=== PATIENT | female | born 1985 | race Caucasian/White ===

== ENCOUNTER 2016-10-01 19:59 | Emergency (ER) | payer OTHER ==
[~2016-10-01] VITALS: Ht 157.5 cm; Wt 99.6 kg
[2016-10-01 21:26] LABS: HEMATOCRIT 41.9 % (36.0-46.0); MCH 29.8 PG (29.0-34.0); MCHC 33.2 G/DL (30.0-36.0); MCV 89.7 FL (83-99); MEAN PLAT.VOLUME 8.7 uM^3 (9.5-12.4); PLATELET COUNT 288 K/uL (156-360); RBC DIS.WIDTH-CV 12.8 % (11.8-14.6); RBC DIS.WIDTH-SD 41.8 % (39-53); RED BLOOD COUNT 4.67 M/uL (3.80-5.20); WHITE BLOOD COUNT 11.8 K/uL (4.1-10.2)
[2016-10-01 21:59] LABS: CHLORIDE 108 mEq/L (99-109); SODIUM 139 mEq/L (136-147)
[2016-10-01 22:01] LABS: GLUCOSE 88 mg/dL (70-99)
[2016-10-01 22:03] LABS: ANION GAP 11 MEQ/L (2-14)
[2016-10-01 22:05] LABS: GFR ESTIMATE (CALCULATED) > 59 mL/min/
[2016-10-01 22:06] LABS: UREA NITROGEN (BUN) 13 mg/dL (9-23)
[2016-10-01 22:45] LABS: ADD MIUA? YES; BILIRUBIN NEGATIVE; BLOOD LARGE; COLOR AMBER ((YELLOW)); GLUCOSE (STRIP) NEGATIVE; KETONES 5; LEUKOCYTES SMALL; NITRITE NEGATIVE; PROTEIN (STRIP) 30; SPECIFIC GRAVITY 1.038 (1.000-1.030); UROBILINOGEN 0.2 MG/DL (0.2-1.0)
[2016-10-01 22:57] LABS: BACTERIA RARE /HPF; EPITHELIAL CELLS 1+ /HPF; MUCUS 4+ /LPF; RED BLOOD CELLS NONE SEEN /HPF (0-5); UCUL ADDED? NO; WHITE BLOOD CELLS 15-20 /HPF (0-5)
[2016-10-01 23:38] VITALS: BP 120/89
== END 2016-10-01 23:43 | disposition home or self-care (01) ==
LOC: EME 19:59
PROVIDERS: Physician Assistant
DX: O20.9 Hemorrhage in early pregnancy, unspecified (principal); R10.30 Lower abdominal pain, unspecified; M54.9 Dorsalgia, unspecified; O99.331 Smoking (tobacco) complicating pregnancy, first trimester; F17.200 Nicotine dependence, unspecified, uncomplicated
CPT/HCPCS: 76801; 80048; 81003; 84702; 85027; 86900; 86901; 87077; 87086; 87186; 99281; 99284

== ENCOUNTER 2016-12-01 13:26 | Observation (INO) | payer OTHER ==
[~2016-12-01] VITALS: Ht 157.5 cm; Wt 101.7 kg
[2016-12-01 14:48] LABS: BASOPHIL COUNT 0.1 K/uL (0-0.1); EOSINOPHIL (%) 0.3 % (0-5); EOSINOPHIL COUNT 0.1 K/uL (0-0.3); HEMATOCRIT 42.6 % (36.0-46.0); IMMATURE GRANULOCYTE (%) 0.4 % (0.0-0.7); IMMATURE GRANULOCYTE COUNT 0.1 K/uL; INSTRUMENT ABS NEUTROPHIL CT 12.5 K/uL; LYMPHOCYTE COUNT 2.6 K/uL (1.0-2.8); MCH 29.5 PG (29.0-34.0); MCHC 33.6 G/DL (30.0-36.0); MEAN PLAT.VOLUME 8.9 uM^3 (9.5-12.4); MONOCYTE COUNT 1.2 K/uL (0-0.8); NEUTROPHIL (%) 76.2 % (45-76); NEUTROPHIL COUNT 12.5 K/uL (1.8-6.4); PLATELET COUNT 299 K/uL (156-360); RBC DIS.WIDTH-CV 12.4 % (11.8-14.6); RBC DIS.WIDTH-SD 40.2 % (39-53); RED BLOOD COUNT 4.84 M/uL (3.80-5.20); WHITE BLOOD COUNT 16.4 K/uL (4.1-10.2)
[2016-12-01 15:00] LABS: CHLORIDE 105 mEq/L (99-109); POTASSIUM 3.8 mEq/L (3.7-5.4); SODIUM 138 mEq/L (136-147)
[2016-12-01 15:03] LABS: GLUCOSE 103 mg/dL (70-99)
[2016-12-01 15:04] LABS: ANION GAP 15 MEQ/L (2-14)
[2016-12-01 15:05] LABS: TOTAL BILIRUBIN 0.7 mg/dL (0.0-1.0)
[2016-12-01 15:06] LABS: SERUM ETHYL ALCOHOL < 10 mg/dL
[2016-12-01 15:07] LABS: ALKALINE PHOSPHATASE 47 IU/L (3-129); GFR ESTIMATE (CALCULATED) > 59 mL/min/
[2016-12-01 15:08] LABS: DIRECT BILIRUBIN 0.3 mg/dL (0.0-0.3)
[2016-12-01 15:09] LABS: UREA NITROGEN (BUN) 13 mg/dL (9-23)
[2016-12-01 15:10] LABS: SALICYLATE < 5.0 MG/DL (15-30)
[2016-12-01 15:16] LABS: QUANTITATIVE HCG < 4.0 MIU/ML
[2016-12-01 15:25] LABS: ADD MIUA? YES; BILIRUBIN NEGATIVE; BLOOD SMALL; COLOR AMBER ((YELLOW)); GLUCOSE (STRIP) NEGATIVE; KETONES NEGATIVE; LEUKOCYTES NEGATIVE; NITRITE NEGATIVE; PROTEIN (STRIP) 30; SPECIFIC GRAVITY 1.029 (1.000-1.030); UROBILINOGEN 0.2 MG/DL (0.2-1.0)
[2016-12-01 15:35] LABS: AMPHETAMINE NEGATIVE (500 ng/mL); BARBITURATES NEGATIVE (200 ng/mL); BENZODIAZEPINES NEGATIVE (150 ng/mL); COCAINE NEGATIVE (150 ng/mL); INTERNAL CONTROLS VALID? YES; METHADONE NEGATIVE (200 ng/mL); METHAMPHETAMINE NEGATIVE (500 ng/mL); OPIATES (MORPHINE) NEGATIVE (100 ng/mL); OXYCODONE NEGATIVE (100 ng/mL); PHENCYCLIDINE NEGATIVE (25 ng/mL); PROPOXYPHENE NEGATIVE (300 ng/mL); THC CANNABINOIDS NEGATIVE (50 ng/mL); TRICYCLIC ANTIDEPRESSANTS NEGATIVE (300 ng/mL)
[2016-12-01 15:41] LABS: BACTERIA RARE /HPF; EPITHELIAL CELLS 2+ /HPF; MUCUS 1+ /LPF; WHITE BLOOD CELLS 0-5 /HPF (0-5)
[2016-12-01] MEDS ORDERED: LEXAPRO10 MG PO (16:23)
[2016-12-01] MEDS ORDERED: INHALER (16:23)
[2016-12-01] MEDS ORDERED: VENTOLIN HFA18 GM IH (16:23)
[2016-12-01 19:46] VITALS: BP 102/53
[2016-12-01 23:50] VITALS: BP 118/66
[2016-12-02 03:56] VITALS: BP 115/58
[2016-12-02 06:12] LABS: ANION GAP 8 MEQ/L (2-14); CHLORIDE 109 MEQ/L (99-109); GFR ESTIMATE (CALCULATED) > 59 mL/min/; GLUCOSE 84 mg/dL (70-99); SAMPLE HEMOLYSIS CHECK 0; SAMPLE ICTERIC CHECK 0; SAMPLE LIPEMIA CHECK 0; SODIUM 140 MEQ/L (136-147); UREA NITROGEN (BUN) 12 mg/dL (9-23)
[2016-12-02 08:00] VITALS: BP 96/51
[2016-12-02 11:48] VITALS: BP 119/74
== END 2016-12-02 13:14 | disposition home or self-care (01) ==
LOC: EME 13:26 → EDOF 16:37 → 5WEST 19:29
PROVIDERS: Emergency Medicine; Hospitalist
DX: T43.222A Poisoning by selective serotonin reuptake inhibitors, intentional self-harm, initial encounter (principal); F43.22 Adjustment disorder with anxiety; F32.9 Major depressive disorder, single episode, unspecified; J45.909 Unspecified asthma, uncomplicated; F17.200 Nicotine dependence, unspecified, uncomplicated
CPT/HCPCS: 80048; 80076; 81003; 84702; 85025; 93005; G0378; G0480; J1200; J1885; J2405; J2765; J7030; S0028

== ENCOUNTER 2017-01-08 13:38 | Emergency (ER) | payer OTHER ==
[~2017-01-08] VITALS: Ht 157.5 cm; Wt 99.7 kg
[~2017-01-08 13:38] MED LIST: INHALER; LEXAPRO10 MG PO; VENTOLIN HFA18 GM IH
[2017-01-08] MEDS ORDERED: ULTRAM50 MG PO (15:50)
[2017-01-08 15:56] VITALS: BP 115/75
== END 2017-01-08 16:06 | disposition home or self-care (01) ==
LOC: EME 13:38
DX: S86.912A Strain of unspecified muscle(s) and tendon(s) at lower leg level, left leg, initial encounter (principal); M79.662 Pain in left lower leg; X58.XXXA Exposure to other specified factors, initial encounter; Y93.01 Activity, walking, marching and hiking
CPT/HCPCS: 76882; 99281; 99284

== ENCOUNTER 2017-01-16 23:54 | Emergency (ER) | payer OTHER ==
[~2017-01-16] VITALS: Ht 157.5 cm; Wt 98.2 kg
[~2017-01-16 23:54] MED LIST changes: +ULTRAM50 MG PO
[2017-01-17 02:03] LABS: EOSINOPHIL (%) 1.9 % (0-5); EOSINOPHIL COUNT 0.2 K/uL (0-0.3); HEMATOCRIT 41.9 % (36.0-46.0); IMMATURE GRANULOCYTE (%) 0.3 % (0.0-0.7); INSTRUMENT ABS NEUTROPHIL CT 7.6 K/uL; LYMPHOCYTE COUNT 3.4 K/uL (1.0-2.8); MCH 29.6 PG (29.0-34.0); MCHC 32.7 G/DL (30.0-36.0); MCV 90.5 FL (83-99); MONOCYTE (%) 6.8 % (3-12); MONOCYTE COUNT 0.8 K/uL (0-0.8); NEUTROPHIL (%) 62.9 % (45-76); NEUTROPHIL COUNT 7.6 K/uL (1.8-6.4); PLATELET COUNT 287 K/uL (156-360); RBC DIS.WIDTH-CV 12.6 % (11.8-14.6); RBC DIS.WIDTH-SD 41.7 % (39-53); RED BLOOD COUNT 4.63 M/uL (3.80-5.20); WHITE BLOOD COUNT 12.1 K/uL (4.1-10.2)
[2017-01-17 02:11] LABS: CHLORIDE 106 mEq/L (99-109); SODIUM 139 mEq/L (136-147)
[2017-01-17 02:13] LABS: GLUCOSE 97 mg/dL (70-99)
[2017-01-17 02:14] LABS: ANION GAP 12 MEQ/L (2-14)
[2017-01-17 02:17] LABS: GFR ESTIMATE (CALCULATED) > 59 mL/min/; UREA NITROGEN (BUN) 16 mg/dL (9-23)
[2017-01-17 03:42] VITALS: BP 132/87
== END 2017-01-17 03:44 | disposition home or self-care (01) ==
LOC: EME 23:54
PROVIDERS: Emergency Medicine
DX: S09.90XA Unspecified injury of head, initial encounter (principal); M54.2 Cervicalgia; Y04.8XXA Assault by other bodily force, initial encounter; Y92.009 Unspecified place in unspecified non-institutional (private) residence as the place of occurrence of the external cause; F12.90 Cannabis use, unspecified, uncomplicated; J45.909 Unspecified asthma, uncomplicated; Z72.0 Tobacco use
CPT/HCPCS: 70450; 70498; 80048; 85025; 99281; 99284

== ENCOUNTER 2017-02-14 08:25 | Emergency (ER) | payer OTHER ==
[~2017-02-14] VITALS: Ht 157.5 cm; Wt 97.7 kg
[2017-02-14 08:30] VITALS: BP 113/81
== END 2017-02-14 10:20 | disposition left against medical advice (07) ==
LOC: EME 08:25
DX: M79.672 Pain in left foot (principal); Z53.21 Procedure and treatment not carried out due to patient leaving prior to being seen by health care provider

== ENCOUNTER 2017-02-20 11:22 | Emergency (ER) | payer OTHER ==
[~2017-02-20] VITALS: Ht 157.5 cm; Wt 98.6 kg
[2017-02-20 11:36] VITALS: BP 119/72
[2017-02-20] MEDS ORDERED: FLEXERIL10 MG PO (14:28)
[2017-02-20] MEDS ORDERED: INDOCIN50 MG PO (14:28)
== END 2017-02-20 14:49 | disposition home or self-care (01) ==
LOC: EME 11:22
DX: S93.402A Sprain of unspecified ligament of left ankle, initial encounter (principal); S86.912A Strain of unspecified muscle(s) and tendon(s) at lower leg level, left leg, initial encounter; X58.XXXA Exposure to other specified factors, initial encounter; J45.909 Unspecified asthma, uncomplicated; F17.200 Nicotine dependence, unspecified, uncomplicated
CPT/HCPCS: 73610; 93971; 99281; 99284

== ENCOUNTER 2017-07-23 17:19 | Emergency (ER) | payer OTHER ==
[~2017-07-23] VITALS: Ht 157.5 cm; Wt 95.1 kg
[~2017-07-23 17:19] MED LIST changes: +FLEXERIL10 MG PO; +INDOCIN50 MG PO
[2017-07-23 17:39] VITALS: BP 111/79
== END 2017-07-23 19:45 | disposition left against medical advice (07) ==
LOC: EME 17:19
DX: N93.8 Other specified abnormal uterine and vaginal bleeding (principal); Z53.21 Procedure and treatment not carried out due to patient leaving prior to being seen by health care provider

== ENCOUNTER 2017-10-25 05:41 | Day surgery (SDC) | payer OTHER ==
[~2017-10-25] VITALS: Ht 157.5 cm; Wt 93.9 kg
[2017-10-25 06:21] VITALS: BP 116/68
[2017-10-25 06:27] LABS: BASOPHIL (%) 0.5 % (0-1); EOSINOPHIL (%) 1.3 % (0-5); EOSINOPHIL COUNT 0.1 K/uL (0-0.3); HEMATOCRIT 39.9 % (36.0-46.0); HEMOGLOBIN 13.6 G/DL (11.9-15.5); IMMATURE GRANULOCYTE (%) 0.3 % (0.0-0.7); LYMPHOCYTE (%) 29.7 % (15-42); LYMPHOCYTE COUNT 2.3 K/uL (1.0-2.8); MCH 30.5 PG (29.0-34.0); MCHC 34.1 G/DL (30.0-36.0); MCV 89.5 FL (83-99); MONOCYTE (%) 8.9 % (3-12); MONOCYTE COUNT 0.7 K/uL (0-0.8); NEUTROPHIL (%) 59.3 % (45-76); NEUTROPHIL COUNT 4.7 K/uL (1.8-6.4); PLATELET COUNT 252 K/uL (156-360); RBC DIS.WIDTH-CV 12.6 % (11.8-14.6); RBC DIS.WIDTH-SD 41.1 % (39-53); RED BLOOD COUNT 4.46 M/uL (3.80-5.20); WHITE BLOOD COUNT 7.9 K/uL (4.1-10.2)
[2017-10-25] MEDS ORDERED: IBUPROFEN800 MG PO (09:40)
[2017-10-25] MEDS ORDERED: ENDOCET 5-3251 EACH PO (09:40)
[2017-10-25 10:57] VITALS: BP 142/80
[2017-10-25 11:51] VITALS: BP 143/86
[2017-10-26] MEDS ORDERED: BACTRIM,SEPT1 TABLET PO (16:50)
== END 2017-10-25 11:50 | disposition home or self-care (01) ==
LOC: SDC 05:41
PROVIDERS: Obstetrics & Gynecology Gynecology
PROC: 0UT94ZZ Resection of Uterus, Percutaneous Endoscopic Approach (ICD-10-PCS; principal; 2017-10-25)
PROC: 0UTC4ZZ Resection of Cervix, Percutaneous Endoscopic Approach (ICD-10-PCS; principal; 2017-10-25)
PROC: 0TJB8ZZ Inspection of Bladder, Via Natural or Artificial Opening Endoscopic (ICD-10-PCS; principal; 2017-10-25)
PROC: 0UT74ZZ Resection of Bilateral Fallopian Tubes, Percutaneous Endoscopic Approach (ICD-10-PCS; principal; 2017-10-25)
DX: N93.9 Abnormal uterine and vaginal bleeding, unspecified (principal); N80.0 Endometriosis of uterus; N72 Inflammatory disease of cervix uteri; R10.2 Pelvic and perineal pain; N85.4 Malposition of uterus
CPT/HCPCS: 84702; 85025; 86850; 86900; 86901; 88307; J0131; J0690; J1100; J1170; J1885; J2250; J2405; J2710; J2765; J3010; J7643

== ENCOUNTER 2017-10-26 09:16 | Day surgery (SDC) | payer OTHER ==
[~2017-10-26] VITALS: Ht 157.5 cm; Wt 94.1 kg
[~2017-10-26 09:16] MED LIST changes: +ENDOCET 5-3251 EACH PO; +IBUPROFEN800 MG PO
[2017-10-26 10:30] LABS: HEMATOCRIT 38.6 % (36.0-46.0); HEMOGLOBIN 13.2 G/DL (11.9-15.5); MCH 30.6 PG (29.0-34.0); MCHC 34.2 G/DL (30.0-36.0); MCV 89.4 FL (83-99); PLATELET COUNT 240 K/uL (156-360); RBC DIS.WIDTH-CV 12.4 % (11.8-14.6); RBC DIS.WIDTH-SD 41.1 % (39-53); RED BLOOD COUNT 4.32 M/uL (3.80-5.20); WHITE BLOOD COUNT 16.8 K/uL (4.1-10.2)
[2017-10-26 10:36] LABS: INTER. NORMALIZED RATIO 1.1
[2017-10-26 10:39] LABS: PTT 28.6 SEC (25-37)
[2017-10-26 10:42] LABS: CHLORIDE 111 mEq/L (99-109); POTASSIUM 3.7 mEq/L (3.7-5.4); SODIUM 142 mEq/L (136-147)
[2017-10-26 10:44] LABS: GLUCOSE 90 mg/dL (70-99)
[2017-10-26 10:45] LABS: TOTAL PROTEIN 6.9 g/dL (6.4-8.3)
[2017-10-26 10:46] LABS: TOTAL BILIRUBIN 0.5 mg/dL (0.0-1.0)
[2017-10-26 10:48] LABS: ALKALINE PHOSPHATASE 43 IU/L (3-129); CREATININE 0.8 mg/dL (0.6-1.3); GFR ESTIMATE (CALCULATED) > 59 mL/min/
[2017-10-26 10:49] LABS: UREA NITROGEN (BUN) 11 mg/dL (9-23)
[2017-10-26 10:50] LABS: AST (GOT) 29 IU/L (2-34)
[2017-10-26 10:51] LABS: ALT (GPT) 32 IU/L (3-49)
[2017-10-26 11:34] LABS: APPEARANCE SL.HAZY ((CLEAR)); BILIRUBIN NEGATIVE; BLOOD MODERATE; COLOR YELLOW ((YELLOW)); GLUCOSE (STRIP) NEGATIVE; KETONES NEGATIVE; LEUKOCYTES NEGATIVE; NITRITE NEGATIVE; PROTEIN (STRIP) NEGATIVE; SPECIFIC GRAVITY 1.019 (1.000-1.030); UROBILINOGEN 0.2 MG/DL (0.2-1.0)
[2017-10-26 11:39] LABS: BACTERIA NONE SEEN /HPF; EPITHELIAL CELLS RARE /HPF; MUCUS 1+ /LPF; RED BLOOD CELLS 20-30 /HPF (0-5); UCUL ADDED? YES
[2017-10-26 12:50] LABS: APPEARANCE CLEAR ((CLEAR)); BILIRUBIN NEGATIVE; BLOOD MODERATE; COLOR YELLOW ((YELLOW)); GLUCOSE (STRIP) NEGATIVE; KETONES NEGATIVE; LEUKOCYTES NEGATIVE; NITRITE NEGATIVE; PROTEIN (STRIP) NEGATIVE; SPECIFIC GRAVITY 1.012 (1.000-1.030); UROBILINOGEN 0.2 MG/DL (0.2-1.0)
[2017-10-26 13:00] LABS: BACTERIA RARE /HPF; EPITHELIAL CELLS NONE SEEN /HPF; MUCUS TRACE /LPF; RED BLOOD CELLS 20-30 /HPF (0-5); UCUL ADDED? YES
[2017-10-26] MEDS ORDERED: BACTRIM,SEPT1 TABLET PO (16:50)
[2017-10-26 17:57] VITALS: BP 121/78
== END 2017-10-26 20:08 | disposition home or self-care (01) ==
LOC: EME 09:16 → 2EAST 15:31 → SDC 15:31 → 2SOUTH 16:13 → ENRESERV 16:59 → 2EAST 17:42
PROVIDERS: Emergency Medicine Emergency Medical Services
PROC: BT1F1ZZ Fluoroscopy of Left Kidney, Ureter and Bladder using Low Osmolar Contrast (ICD-10-PCS; principal; 2017-10-26)
PROC: 0T778DZ Dilation of Left Ureter with Intraluminal Device, Via Natural or Artificial Opening Endoscopic (ICD-10-PCS; principal; 2017-10-26)
DX: N13.30 Unspecified hydronephrosis (principal); Z98.890 Other specified postprocedural states; Z90.710 Acquired absence of both cervix and uterus; R10.30 Lower abdominal pain, unspecified; Z87.891 Personal history of nicotine dependence; Z82.49 Family history of ischemic heart disease and other diseases of the circulatory system; Z83.3 Family history of diabetes mellitus; Z84.1 Family history of disorders of kidney and ureter
CPT/HCPCS: 74176; 74177; 74420; 80053; 81003; 85027; 85610; 85730; 86850; 86900; 86901; 87086; 93005; 99281; 99285; C2625; G0378; J0696; J1100; J1885; J2250; J2405; J3010; J7030; J7120

== ENCOUNTER 2017-10-27 23:06 | Emergency (ER) | payer OTHER ==
[~2017-10-27] VITALS: Ht 157.5 cm; Wt 91.8 kg
[~2017-10-27 23:06] MED LIST changes: +BACTRIM,SEPT1 TABLET PO
[2017-10-27 23:58] LABS: APPEARANCE CLOUDY ((CLEAR)); BILIRUBIN NEGATIVE; BLOOD LARGE; COLOR AMBER ((YELLOW)); GLUCOSE (STRIP) NEGATIVE; KETONES NEGATIVE; LEUKOCYTES SMALL; NITRITE NEGATIVE; PROTEIN (STRIP) 100; UROBILINOGEN 0.2 MG/DL (0.2-1.0)
[2017-10-28] LABS: BASOPHIL (%) 0.5 % (0-1); BASOPHIL COUNT 0.1 K/uL (0-0.1); EOSINOPHIL (%) 0.5 % (0-5); EOSINOPHIL COUNT 0.1 K/uL (0-0.3); HEMATOCRIT 35.2 % (36.0-46.0); IMMATURE GRANULOCYTE (%) 0.4 % (0.0-0.7); LYMPHOCYTE (%) 40.3 % (15-42); LYMPHOCYTE COUNT 4.5 K/uL (1.0-2.8); MCH 30.5 PG (29.0-34.0); MCHC 34.1 G/DL (30.0-36.0); MCV 89.6 FL (83-99); MONOCYTE (%) 6.3 % (3-12); MONOCYTE COUNT 0.7 K/uL (0-0.8); NEUTROPHIL COUNT 5.8 K/uL (1.8-6.4); PLATELET COUNT 226 K/uL (156-360); RBC DIS.WIDTH-CV 12.6 % (11.8-14.6); RBC DIS.WIDTH-SD 41.6 % (39-53); RED BLOOD COUNT 3.93 M/uL (3.80-5.20); WHITE BLOOD COUNT 11.1 K/uL (4.1-10.2)
[2017-10-28 00:04] LABS: BACTERIA NONE SEEN /HPF; EPITHELIAL CELLS 1+ /HPF; MUCUS 1+ /LPF; RED BLOOD CELLS TNTC /HPF (0-5); WHITE BLOOD CELLS 40-50 /HPF (0-5)
[2017-10-28 00:10] LABS: CHLORIDE 111 mEq/L (99-109); POTASSIUM 3.6 mEq/L (3.7-5.4); SODIUM 142 mEq/L (136-147)
[2017-10-28 00:14] LABS: GLUCOSE 119 mg/dL (70-99)
[2017-10-28 00:16] LABS: CREATININE 0.8 mg/dL (0.6-1.3); GFR ESTIMATE (CALCULATED) > 59 mL/min/
[2017-10-28 00:17] LABS: UREA NITROGEN (BUN) 13 mg/dL (9-23)
[2017-10-28] MEDS ORDERED: ZOFRAN ODT8 MG PO (01:18)
[2017-10-28] MEDS ORDERED: FLOMAX0.4 MG PO (01:18)
[2017-10-28] MEDS ORDERED: NORCO 10/3251 TABLET PO (01:18)
[2017-10-28 01:37] VITALS: BP 124/63
== END 2017-10-28 01:45 | disposition home or self-care (01) ==
LOC: EME 23:06
PROVIDERS: Physician Assistant
DX: N23 Unspecified renal colic (principal); Z98.890 Other specified postprocedural states; Z90.710 Acquired absence of both cervix and uterus; Z96.0 Presence of urogenital implants; R11.2 Nausea with vomiting, unspecified; J45.909 Unspecified asthma, uncomplicated; F17.200 Nicotine dependence, unspecified, uncomplicated
CPT/HCPCS: 74018; 76770; 80048; 81003; 83605; 85025; 85027; 87040; 87086; 99281; 99285; J1885; J2405; J3010

== ENCOUNTER → 2017-12-10 | Outpatient (CLI) | payer OTHER ==
[~2017-12-10] MED LIST changes: +FLOMAX0.4 MG PO; +NORCO 10/3251 TABLET PO; +ZOFRAN ODT8 MG PO
== END | disposition home or self-care (01) ==
LOC: NUC 10:41
DX: N13.30 Unspecified hydronephrosis (principal)
CPT/HCPCS: 78709; A9562; J1940